=== PATIENT | female | born 1945 | race African-American/Black ===

== ENCOUNTER 2018-01-26 15:15 | Inpatient (IN) | payer OTHER ==
[2018-01-26] MEDS ORDERED: ALBUTEROL 2.5 MG/3 ML NEB SOL ONE (16:07)
[2018-01-26 16:18] LABS: Protime INR 2.94
[2018-01-26 16:34] LABS: Absolute Lymphocytes (CBC) 1.5 K/uL (0.7-4.9); Absolute Monocytes 0.6 K/uL (0.1-1.3); Absolute Neutrophil 3.9 K/uL (1.8-8.0); Basophils % 0.5 % (0-1.3); Eosinophils % 2.2 % (0-4.4); Hematocrit 37.3 % (36.0-45.0); MCH 31.9 pg (27.0-35.0); MCV 100.5 fL (80-100); MPV 10.9 fL (7.6-11.3); Monocytes % 10.3 % (3.3-12.3); RBC Red Blood Cell Count 3.71 M/uL (3.86-4.86)
[2018-01-26 16:40] LABS: ALT/SGPT 31 U/L (12-78); AST/SGOT 21 U/L (15-37); Albumin 3.1 g/dL (3.4-5.0); Alkaline Phosphatase 73 U/L (45-117); BUN Blood Urea Nitrogen 25 mg/dL (7-18); Bicarbonate 37 mmol/L (21-32); Bilirubin Direct 0.1 mg/dL (0-0.2); Bilirubin Total 0.5 mg/dL (0.2-1.0); CKMB Creatine Kinase MB < 1.0 ng/mL (0.3-3.6); Creatine Phosphokinase 78 U/L (26-192); Glucose Level 104 mg/dL (74-106); Lipase 253 U/L (73-393); Magnesium 2.2 mg/dL (1.8-2.4); Potassium 3.8 mmol/L (3.5-5.1); Protein, Total 7.8 g/dL (6.4-8.2); Sodium Level 140 mmol/L (136-145)
--- NOTE | 2018-01-26 16:40 | RAD REPORT ---
EXAM DESCRIPTION: [place] Single View01/26/2018 4:31 pm CLINICAL HISTORY: sob COMPARISON: 2007 FINDINGS: The lungs appear clear of acute infiltrate. The heart is moderately to markedly enlarged IMPRESSION: No acute abnormalities displayed
[2018-01-26] MEDS ORDERED: METOPROLOL TARTRATE 5 MG/5 ML INJ IV ONE (17:44)
[2018-01-26] MEDS ORDERED: ASPIRIN 81 MG CHEWABLE TABLET ONE (17:57)
[2018-01-26] MEDS ORDERED: NITROGLYCERIN 0.4 MG/TAB SL ONE (18:05)
[2018-01-26] MEDS ORDERED: DILTIAZEM IV ONE ×2 (18:30→19:15)
[2018-01-26] MEDS ORDERED: NA CHLORIDE 0.9% IVP ONE (18:30)
[2018-01-26] MEDS ORDERED: DILTIAZEM IVP ONE (18:30)
[2018-01-26] MEDS ORDERED: NA CHLORIDE 0.9% IV ONE ×2 (18:30→19:15)
--- NOTE | 2018-01-26 18:47 | ER ---
Nurse's Notes [facility] Name: Leticia Schmitz Age: 72 yrs Sex: Female : 1945 Arrival Date: 01/26/2018 Time: 15:19 Bed 3 Private MD: Juan Choi Diagnosis: Acute dyspnea;CHF exacerbation;Atrial Flutter Presentation: 01/26 15:23 Presenting complaint: Patient states: SOB for the past 3 weeks, last night it so bad aj1 that she is having a heard time speaking and sleeping. 15:28 Acuity: ARLENE 2 aj1 15:38 Transition of care: patient was not received from another setting of care. Onset of aj1 symptoms was January 2018. Risk Assessment: Do you want to hurt yourself or someone else? Patient reports no desire to harm self or others. Initial Sepsis Screen: Does the patient meet any 2 criteria? RR > 20 per min. HR > 90 bpm. Does the patient have a suspected source of infection? No. Patient's initial sepsis screen is negative. Care prior to arrival: None. 15:38 Method Of Arrival: Wheelchair aj Triage Assessment: 15:41 General: Appears distressed, uncomfortable, Behavior is appropriate for age, anxious. aj1 Respiratory: Reports shortness of breath Onset: The symptoms/episode began/occurred 3 weeks ago, the patient has severe shortness of breath. Historical: - Allergies: 15:41 Codeine; aj1 - Home Meds: 15:41 metformin 500 mg Oral tab 1 tab 2 times per day [Active]; potassium chloride 20 mEq aj1 Oral TbER 1 tab once daily [Active]; sertraline 25 mg oral tab 1 tab once daily [Active]; furosemide 40 mg Oral tab 1 tab 2 times per day [Active]; warfarin 10 mg Oral tab 1 tab once daily [Active]; pantoprazole 40 mg oral TbEC 1 tab once daily [Active]; simvastatin 20 mg Oral tab 1 tab once daily [Active]; isosorbide mononitrate 30 mg Oral Tb24 1 tab once daily [Active]; Uloric 80 mg oral tab 1 tab once daily [Active]; atenolol 50 mg Oral tab 1 tab once daily [Active]; - PMHx: 15:41 Atrial Fib; COPD; Asthma; Arthritis; Diabetes - IDDM; CHF; Hyperlipidemia; Hypertension;aj1 - Immunization history:: Adult Immunizations up to date. - Social history:: Smoking status: Patient/guardian denies using tobacco. - Ebola Screening: : Patient negative for fever greater than or equal to 101.5 degrees Fahrenheit, and additional compatible Ebola Virus Disease symptoms. - Family history:: not pertinent. - Hospitalizations: : No recent hospitalization is reported. Screenin:09 Abuse screen: Denies threats or abuse. Denies injuries from another. Nutritional ed1 screening: No deficits noted. Tuberculosis screening: No symptoms or risk factors identified. Fall Risk No fall in past 12 months (0 pts). No secondary diagnosis (0 pts). IV access (20 points). Ambulatory Aid- None/Bed Rest/Nurse Assist (0 pts). Gait- Weak (10 pts.). Mental Status- Oriented to own ability (0 pts). Total Healy Fall Scale indicates Low Risk Score (25-44 pts). Fall prevention measures have been instituted. Side Rails Up X 2 Frequent Obs/Assesments occuring As available Patient and Family Educated on Fall Prevention Program and strategies. Assessment: 16:09 General: Appears uncomfortable, Behavior is calm, cooperative. Pain: Complains of pain ed1 in chest and abdomen Pain does not radiate. Pain currently is 8 out of 10 on a pain scale. Quality of pain is described as aching, Pain began 3 weeks ago Is continuous. Neuro: Level of Consciousness is awake, alert, obeys commands, Oriented to person, place, time, situation. Cardiovascular: Heart tones S1 S2 present Rhythm is sinus tachycardia. Respiratory: Reports shortness of breath Airway is patent Respiratory effort is even, unlabored, Respiratory pattern is regular, symmetrical, Breath sounds with wheezes bilaterally. GI: Abdomen is obese, Bowel sounds present X 4 quads. : No signs and/or symptoms were reported regarding the genitourinary system. EENT: No signs and/or symptoms were reported regarding the EENT system. Derm: Skin is pink, warm \T\ dry. Musculoskeletal: Circulation, motion, and sensation intact. Swelling present in right foot, left foot, right leg and left leg. 16:15 General: the previous assessment is accurate, call light remains within reach. . ss 17:58 Reassessment: Patient appears in no apparent distress at this time. No changes from ed1 previously documented assessment. Patient and/or family updated on plan of care and expected duration. Pain level reassessed. Patient is alert, oriented x 3, equal unlabored respirations, skin warm/dry/pink. Patient states symptoms have not improved. 19:11 Reassessment: Patient appears in no apparent distress at this time. Patient and/or mg2 family updated on plan of care and expected duration. Pain level reassessed. patient is for admission. still awaiitng for bed. 20:45 Reassessment: Patient appears in no apparent distress at this time. Patient and/or mg2 family updated on plan of care and expected duration. Pain level reassessed. Patient is alert, oriented x 3, equal unlabored respirations, skin warm/dry/pink. Vital Signs: 15:27 BP 144 / 104; Pulse 135; Resp 32; Temp 98.1; Pulse Ox 85% on R/A; aj1 16:09 BP 149 / 106; Pulse 136; Resp 19; Pulse Ox 100% on 3 lpm NC; Pain 8/10; ed1 16:54 BP 157 / 119; Pulse 136; Resp 22; Pulse Ox 98% on 4 lpm NC; mt 17:58 BP 139 / 114; Pulse 134; Resp 15; Pulse Ox 100% on 3 lpm NC; Pain 6/10; ed1 17:59 BP 132 / 103; Pulse 133; ed1 18:48 BP 126 / 69; Pulse 134; Resp 24; Pulse Ox 99% on 3 lpm NC; tw2 19:10 Pulse 136; Resp 20; Pulse Ox 99% on 3 lpm NC; Pain 3/10; mg2 19:48 BP 137 / 97; Pulse 135; Resp 22; Pulse Ox 97% on 2 lpm NC; lp1 20:30 BP 139 / 99; Pulse 135; Resp 17; Pulse Ox 98% on 2 lpm NC; lp1 ED Course: 15:19 Patient arrived in ED. sb2 15:19 Juan Choi MD is Private Physician. sb2 15:28 Triage completed. aj1 15:29 Concetta Herrera LVN is Primary Nurse. ed1 15:35 Andrey Duong MD is Attending Physician. wa 15:42 Arm band placed on Patient placed in an exam room, on a stretcher, on oxygen, on aj1 cycle counter, on pulse oximetry. 16:05 EKG done, by glass technician. reviewed by Andrey Duong MD. sm3 16:07 Inserted saline lock: 22 gauge in left antecubital area, using aseptic technique. Blood ss collected. 16:09 Patient has correct armband on for positive identification. Placed in gown. Bed in low ed1 position. Call light in reach. Side rails up X2. certified addiction counselor on. Pulse ox on. NIBP on. 16:29 X-ray completed. Portable x-ray completed in exam room. Patient tolerated procedure ml well. 16:30 XRAY CXR (1 view) In Process Unspecified. EDMS 18:46 Jeanette Beaver MD is Hospitalizing Provider. wa 19:49 No provider procedures requiring assistance completed. Patient admitted, IV remains in lp1 place. 19:49 No provider procedures requiring assistance completed. Patient admitted, IV remains in bb place. Administered Medications: 16:08 Drug: Albuterol 1.25 mg Route: Inhalation; ed1 17:56 Drug: Lopressor 5 mg Route: IVP; Site: left antecubital; ph 17:59 Follow up: BP 132 / 103; Pulse 133 bpm; Response: No adverse reaction; No change in ed1 condition 17:59 Drug: Aspirin Chewable Tablet 324 mg Route: PO; ed1 20:05 Follow up: Response: No adverse reaction lp1 18:42 Drug: Cardizem 20 mg Route: IVP; Site: left antecubital; tw2 19:15 Follow up: Response: No change in condition lp1 19:09 Drug: Nitroglycerin 0.4 mg Route: Sublingual; mg2 20:05 Follow up: Response: No adverse reaction lp1 19:26 Drug: Cardizem 5 mg/hr Route: IV; Rate: calculated rate; Site: left antecubital; mg2 21:02 Follow up: IV Status: Infusion continued upon admission lp1 Outcome: 18:46 Decision to Hospitalize by Provider. wa 19:49 Condition: stable lp1 19:49 Instructed on the need for admit. 20:45 Admitted to ICU accompanied by nurse, accompanied by tech, via stretcher, room 7, with lp1 oxygen, on monitor, with chart, Report called to Ryanne Gonzalez RN 21:03 Patient left the ED. lp1 Signatures: Dispatcher [employer] Maria Del Carmen Vallejo RN RN aj1 Colleen Yates, RN RN bb Piotr, Ryanne Leon, Kaley, RN RN ss Javier, Concetta, PIPE SETTER PIPE SETTER ed1 Oralia Ayala, RN RN lp1 Raymon, Cony, RN RN Colin, Raegan, RN RN tw2 Meek, Susanne in Andrey Duong MD MD wa Billeau, Angelica cho2 Bill Earl, ADOLFO RN [facility] [place], Angelica 3
--- NOTE | 2018-01-26 18:47 | EDPHYS ---
Physician Documentation [facility] Name: Leticia Schmitz Age: 72 yrs Sex: Female : 1945 Arrival Date: 01/26/2018 Time: 15:19 Bed 3 Private MD: Juan Choi ED Physician Andrey Duong HPI: 01/26 17:44 This 72 yrs old Black Female presents to ER via Wheelchair with complaints of Breathing wa Difficulty. 17:44 The patient has shortness of breath at rest, c/o SOB x 3 weeks. worse last 2 days. wa Onset: The symptoms/episode began/occurred gradually, 3 week(s) ago. Duration: The symptoms are continuous, and are steadily getting worse. The patient's shortness of breath is aggravated by exertion, is alleviated by nothing. Associated signs and symptoms: Pertinent positives: pain all over, Pertinent negatives: non-productive cough, productive cough. Severity of symptoms: At their worst the symptoms were moderate in the emergency department the symptoms are unchanged. The patient has not experienced similar symptoms in the past. The patient has not recently seen a physician. Historical: - Allergies: 15:41 Codeine; aj1 - Home Meds: 15:41 metformin 500 mg Oral tab 1 tab 2 times per day [Active]; potassium chloride 20 mEq aj1 Oral TbER 1 tab once daily [Active]; sertraline 25 mg oral tab 1 tab once daily [Active]; furosemide 40 mg Oral tab 1 tab 2 times per day [Active]; warfarin 10 mg Oral tab 1 tab once daily [Active]; pantoprazole 40 mg oral TbEC 1 tab once daily [Active]; simvastatin 20 mg Oral tab 1 tab once daily [Active]; isosorbide mononitrate 30 mg Oral Tb24 1 tab once daily [Active]; Uloric 80 mg oral tab 1 tab once daily [Active]; atenolol 50 mg Oral tab 1 tab once daily [Active]; - PMHx: 15:41 Atrial Fib; COPD; Asthma; Arthritis; Diabetes - IDDM; CHF; Hyperlipidemia; Hypertension;aj1 - Immunization history:: Adult Immunizations up to date. - Social history:: Smoking status: Patient/guardian denies using tobacco. - Ebola Screening: : Patient negative for fever greater than or equal to 101.5 degrees Fahrenheit, and additional compatible Ebola Virus Disease symptoms. - Family history:: not pertinent. - Hospitalizations: : No recent hospitalization is reported. ROS: 17:45 Constitutional: Negative for fever, chills, and weight loss, Eyes: Negative for injury, wa pain, redness, and discharge, ENT: Negative for injury, pain, and discharge, Neck: Negative for injury, pain, and swelling, Abdomen/GI: Negative for abdominal pain, nausea, vomiting, diarrhea, and constipation, Back: Negative for injury and pain, : Negative for injury, bleeding, discharge, and swelling, Skin: Negative for injury, rash, and discoloration, Neuro: Negative for headache, weakness, numbness, tingling, and seizure, Psych: Negative for depression, anxiety, suicide ideation, homicidal ideation, and hallucinations. 17:45 Cardiovascular: Positive for edema, Negative for chest pain, palpitations, paroxysmal nocturnal dyspnea. 17:45 Respiratory: Positive for shortness of breath, at rest. Negative for cough, hemoptysis, wheezing. 17:45 All other systems are negative. Exam: 17:47 Head/Face: Normocephalic, atraumatic. Eyes: Pupils equal round and reactive to light, wa extra-ocular motions intact. Lids and lashes normal. Conjunctiva and sclera are non-icteric and not injected. Cornea within normal limits. Periorbital areas with no swelling, redness, or edema. ENT: Nares patent. No nasal discharge, no septal abnormalities noted. Tympanic membranes are normal and external auditory canals are clear. Oropharynx with no redness, swelling, or masses, exudates, or evidence of obstruction, uvula midline. Mucous membranes moist. Neck: Trachea midline, no thyromegaly or masses palpated, and no cervical lymphadenopathy. Supple, full range of motion without nuchal rigidity, or vertebral point tenderness. No Meningismus. Chest/axilla: Normal chest wall appearance and motion. Nontender with no deformity. No lesions are appreciated. Abdomen/GI: Soft, non-tender, with normal bowel sounds. No distension or tympany. No guarding or rebound. No evidence of tenderness throughout. Back: No spinal tenderness. No costovertebral tenderness. Full range of motion. Skin: Warm, dry with normal turgor. Normal color with no rashes, no lesions, and no evidence of cellulitis. Neuro: Awake and alert, GCS 15, oriented to person, place, time, and situation. Cranial nerves II-XII grossly intact. Motor strength 5/5 in all extremities. Sensory grossly intact. Cerebellar exam normal. Normal gait. Psych: Awake, alert, with orientation to person, place and time. Behavior, mood, and affect are within normal limits. 17:47 Constitutional: The patient appears alert, obese. appears slightly dyspneic at rest 17:47 Cardiovascular: Rate: tachycardic, Rhythm: regular, Heart sounds: normal, Edema: 1+ edema to level of both LE. 17:47 ECG was reviewed by the Attending Physician. 17:47 Respiratory: Respirations: shallow respirations, that is mild, Breath sounds: decreased breath sounds, that are moderate, are heard in the both lungs, Respiratory rate: nml Vital Signs: 15:27 BP 144 / 104; Pulse 135; Resp 32; Temp 98.1; Pulse Ox 85% on R/A; aj1 16:09 BP 149 / 106; Pulse 136; Resp 19; Pulse Ox 100% on 3 lpm NC; Pain 8/10; ed1 16:54 BP 157 / 119; Pulse 136; Resp 22; Pulse Ox 98% on 4 lpm NC; mt 17:58 BP 139 / 114; Pulse 134; Resp 15; Pulse Ox 100% on 3 lpm NC; Pain 6/10; ed1 17:59 BP 132 / 103; Pulse 133; ed1 18:48 BP 126 / 69; Pulse 134; Resp 24; Pulse Ox 99% on 3 lpm NC; tw2 19:10 Pulse 136; Resp 20; Pulse Ox 99% on 3 lpm NC; Pain 3/10; mg2 19:48 BP 137 / 97; Pulse 135; Resp 22; Pulse Ox 97% on 2 lpm NC; lp1 20:30 BP 139 / 99; Pulse 135; Resp 17; Pulse Ox 98% on 2 lpm NC; lp1 MDM: 15:36 Patient medically screened. wa 17:49 Differential diagnosis: Anemia asthma, Bronchitis CHF exacerbation, Chronic Obstructive wa Pulmonary Disease Myocardial Infarction pneumonia, pulmonary edema, Pulmonary Embolism reactive airway disease, Sepsis Unstable Angina. 17:49 Data reviewed: vital signs, nurses notes. wa 17:50 Test interpretation: by ED physician or midlevel provider: EKG: HR 135. Aflutter. wa inferior and lateral EKG changes consistent with old infarct. 18:44 Test interpretation: by ED physician or midlevel provider: BNP 1594. Response to nm treatment: the patient's symptoms have mildly improved after treatment. Physician consultation: Jeanette Beaver MD. Admission orders: after a detailed discussion of the patient's condition and case, the admit orders are written by me. ED course: HR did not respond to lopressor. will give a dose of cardizem and begin drip for A flutter.. 01/26 15:51 Order name: Blood Culture Adult (2) 01/26 15:51 Order name: BMP 01/26 15:51 Order name: CBC with Diff 01/26 15:51 Order name: Ckmb 01/26 15:51 Order name: CPK 01/26 15:51 Order name: Hepatic Function; Complete Time: 17:30 nm 01/26 15:51 Order name: Lipase; Complete Time: 17:30 nm 01/26 15:51 Order name: Magnesium; Complete Time: 17:31 nm 01/26 15:51 Order name: PT-INR; Complete Time: 17:30 nm 01/26 15:51 Order name: Troponin (emerg Dept Use Only); Complete Time: 17:31 nm 01/26 15:51 Order name: Blood Culture [facility] 01/26 15:51 Order name: Basic Metabolic Panel; Complete Time: 17:30 [facility] 01/26 15:51 Order name: CBC with Automated Diff; Complete Time: 17:30 [facility] 01/26 15:51 Order name: CKMB Creatine Kinase MB; Complete Time: 17:31 [facility] 01/26 15:51 Order name: XRAY CXR (1 view); Complete Time: 17:30 nm 01/26 15:51 Order name: EKG; Complete Time: 15:51 01/26 15:51 Order name: Cardiac monitoring; Complete Time: 15:52 nm 01/26 15:51 Order name: EKG - Nurse/Tech; Complete Time: 15:52 nm 01/26 15:51 Order name: IV Saline Lock; Complete Time: 16:03 01/26 15:51 Order name: Labs collected and sent; Complete Time: 16:01/26 15:51 Order name: Creatine Phosphokinase; Complete Time: 17:31 [facility] 01/26 17:31 Order name: BNP; Complete Time: 18:43 nm 01/26 19:41 Order name: Urine Dipstick--Ancillary (enter results) 01/26 20:07 Order name: Urine Dipstick-Ancillary [facility] 01/26 15:51 Order name: O2 Per Protocol; Complete Time: 15:52 nm 01/26 15:51 Order name: O2 Sat Monitoring; Complete Time: 15:53 nm 01/26 15:51 Order name: Urine Dipstick-Ancillary (obtain specimen); Complete Time: 20:04 nm 01/26 18:35 Order name: Straight Cath - Urine; Complete Time: 19:09 tw2 Administered Medications: 16:08 Drug: Albuterol 1.25 mg Route: Inhalation; ed1 17:56 Drug: Lopressor 5 mg Route: IVP; Site: left antecubital; ph 17:59 Follow up: BP 132 / 103; Pulse 133 bpm; Response: No adverse reaction; No change in ed1 condition 17:59 Drug: Aspirin Chewable Tablet 324 mg Route: PO; ed1 20:05 Follow up: Response: No adverse reaction lp1 18:42 Drug: Cardizem 20 mg Route: IVP; Site: left antecubital; tw2 19:15 Follow up: Response: No change in condition lp1 19:09 Drug: Nitroglycerin 0.4 mg Route: Sublingual; mg2 20:05 Follow up: Response: No adverse reaction lp1 19:26 Drug: Cardizem 5 mg/hr Route: IV; Rate: calculated rate; Site: left antecubital; mg2 21:02 Follow up: IV Status: Infusion continued upon admission lp1 Disposition: 01/26/18 18:46 Hospitalization ordered by Jeanette Beaver for Inpatient Admission. Preliminary diagnosis are Acute dyspnea, CHF exacerbation, Atrial Flutter. - Bed requested for Intensive Care Unit. - Status is Inpatient Admission. lp1 - Condition is Stable. - Problem is new. - Symptoms have improved. UTI on Admission? No Signatures: Dispatcher [employer] EDMS Maria Del Carmen Askew RN RN aj1 Leilani Farooq RN RN dw Concetta Herrera, MAPLE SYRUP MAKER MAPLE SYRUP MAKER ed1 Oralia Ayala RN RN lp1 Cony Ennis RN RN Ko Johnson, BOAT OFFICER BOAT OFFICER pm1 Raegan Shaw RN RN tw2 Andrey Duong MD MD wa Botello, Elizabeth eb Gardose, Michele, RN RN mg2 Corrections: (The following items were deleted from the chart) 18:52 18:46 Hospitalization Ordered by Jeanette Beaver MD for Inpatient Admission. Preliminary eb diagnosis is Acute dyspnea; CHF exacerbation; Atrial Flutter. Bed requested for Telemetry/MedSurg (Inpatient). Status is Inpatient Admission. Condition is Stable. Problem is new. Symptoms have improved. UTI on Admission? No. wa 19:17 18:52 01/26/2018 18:46 Hospitalization Ordered by Jeanette Beaver MD for Inpatient pm1 Admission. Preliminary diagnosis is Acute dyspnea; CHF exacerbation; Atrial Flutter. Bed requested for Telemetry/MedSurg (Inpatient). Status is Inpatient Admission. Condition is Stable. Problem is new. Symptoms have improved. UTI on Admission? No. eb 19:24 19:17 01/26/2018 18:46 Hospitalization Ordered by Jeanette Beaver MD for Inpatient dw Admission. Preliminary diagnosis is Acute dyspnea; CHF exacerbation; Atrial Flutter. Bed requested for Telemetry/MedSurg (Inpatient). Status is Inpatient Admission. Condition is Stable. Problem is new. Symptoms have improved. UTI on Admission? No. pm1 19:26 19:24 01/26/2018 18:46 Hospitalization Ordered by Jeanette Beaver MD for Inpatient dw Admission. Preliminary diagnosis is Acute dyspnea; CHF exacerbation; Atrial Flutter. Bed requested for Intensive Care Unit. Status is Inpatient Admission. Condition is Stable. Problem is new. Symptoms have improved. UTI on Admission? No. dw 21:03 19:26 01/26/2018 18:46 Hospitalization Ordered by Jeanette Beaver MD for Inpatient lp1 Admission. Preliminary diagnosis is Acute dyspnea; CHF exacerbation; Atrial Flutter. Bed requested for Intensive Care Unit. Status is Inpatient Admission. Condition is Stable. Problem is new. Symptoms have improved. UTI on Admission? No. dw
[2018-01-26] MEDS ORDERED: ONDANSETRON 4 MG/2 ML VIAL IV PRN (19:18)
[2018-01-26] MEDS ORDERED: ACETAMINOPHEN 650MG/RECT SUPP RECT PRN (19:18)
[2018-01-26] MEDS ORDERED: METOPROLOL TARTRATE 5 MG/5 ML INJ IV PRN (19:21)
[2018-01-26] MEDS ORDERED: NA CHLORIDE 0.9% 1,000 ML IV SCH ×2 (20:00→23:00)
[2018-01-26 20:06] LABS: Urine Blood TRACE (NEG); Urine Glucose NEGATIVE (NEG); Urine Protein 2+ (NEG); Urine Specific Gravity 1.015 (1.005-1.030)
[2018-01-26] MEDS ORDERED: METOPROLOL TAR 50 MG TAB PO ONE (23:24)
[2018-01-27] MEDS ORDERED: METOPROLOL TARTRATE 5 MG/5 ML INJ IV SCH (02:00)
[2018-01-27] MEDS: METOPROLOL TARTRATE 5 MG/5 ML INJ IV SCH ×4 (02:25→20:21)
[2018-01-27 05:19] LABS: Absolute Lymphocytes (CBC) 1.4 K/uL (0.7-4.9); Absolute Monocytes 0.6 K/uL (0.1-1.3); Absolute Neutrophil 3.5 K/uL (1.8-8.0); Basophils % 0.5 % (0-1.3); Eosinophils % 2.3 % (0-4.4); Hematocrit 36.6 % (36.0-45.0); Lymphocytes % 24.7 % (15.3-44.8); MCV 102.1 fL (80-100); MPV 10.3 fL (7.6-11.3); Monocytes % 11.1 % (3.3-12.3); RBC Red Blood Cell Count 3.59 M/uL (3.86-4.86)
--- NOTE | 2018-01-27 05:28 | P.HP ---
Certification for Inpatient Patient admitted to: Inpatient With expected LOS: >2 Midnights Patient will require the following post-hospital care: None Practitioner: I am a practitioner with admitting privileges, knowledge of patient current condition, hospital course, and medical plan of care. Services: Services provided to patient in accordance with Admission requirements found in Title 42 Section 412.3 of the Code of Federal Regulations Patient History Date of Service: 01/26/18 Reason for admission: AFib with RVR History of Present Illness: Patient is a 72-year-old female who presents to the hospital with palpitations along with shortness of breath. Patient has had a history of atrial fibrillation in follows up with her technical applications specialist in [place]. She sees Dr. Goss. She has been on atenolol and Coumadin. Her INR is therapeutic. She has been having some shortness of breath and her workup in the ER revealed atrial fibrillation with rapid ventricular response. In the emergency room patient was started on Cardizem but her heart rate has not been improving. We went ahead and stop this and are going to get an echocardiogram and continue with beta-kala therapy. We will also get Cardiology consultation further recommendations. The patient is feeling better. She is hemodynamically stable although or heart rate continues to stay in the 120s. Will check her thyroid studies in the morning and wait for other diagnostic testings. Allergies codeine Adverse Reaction (Verified 01/26/18 21:53) Itching/Hives/Rash Home Medications: Allopurinol 300 mg PO DAILY 01/26/18 Atenolol 50 mg PO DAILY 01/26/18 Febuxostat [Uloric] 80 mg PO DAILY 01/26/18 Furosemide 40 mg PO BID 01/26/18 Isosorbide Mononitrate [Isosorbide Mononitrate ER] 30 mg PO BID 01/26/18 Metformin HCl [Glucophage*] 500 mg PO BID 01/26/18 Pantoprazole Sodium 40 mg PO DAILY 01/26/18 Potassium Chloride 1 tab PO DAILY 01/26/18 Sertraline HCl 25 mg PO DAILY 01/26/18 Simvastatin 20 mg PO DAILY 01/26/18 Warfarin Sodium 10 mg PO DAILY 01/26/18 - Past Medical/Surgical History Has patient received pneumonia vaccine in the past: Yes Diabetic: Yes -: CHF -: HTN -: Afib -: COPD -: NIDDM -: Arthritis -: Hyperlipidemia -: Asthma -: Hysterectomy -: Cholecystectomy -: Hernia repair 5 surgeries -: dental work - Family History Father Medical History: Cancer Notes: stomach Mother Medical History: Cancer Notes: stomach - Social History Smoking Status: Never smoker Alcohol use: No CD- Drugs: No Caffeine use: No Place of Residence: Home Review of Systems 10-point ROS is otherwise unremarkable Physical Examination - Vital Signs Temperature: 97 F Blood Pressure: 139/103 Pulse: 127 Respirations: 20 Pulse Ox (%): 100 - Physical Exam General: Alert, In no apparent distress, Oriented x3 HEENT: Atraumatic, PERRLA, Mucous membr. moist/pink, EOMI, Sclerae nonicteric Neck: Supple, 2+ carotid pulse no bruit, No LAD, Without JVD or thyroid abnormality Respiratory: Clear to auscultation bilaterally, Normal air movement Cardiovascular: Irregular heart rate/rhythm, Systolic murmur Gastrointestinal: Normal bowel sounds, Soft and benign, Non-distended, No tenderness, No rebound, No guarding Musculoskeletal: No clubbing, No swelling, No tenderness Integumentary: No rashes Neurological: Normal gait, Normal speech, Normal strength at 5/5 x4 extr, Normal tone, Sensation intact, Cranial nerves 3-12 intact, Normal affect Lymphatics: No axilla or inguinal lymphadenopathy - Studies Laboratory Data (last 24 hrs) 01/26/18 16:00: PT 35.1 H, INR 2.94 01/26/18 16:00: WBC 6.2, Hgb 11.8 L, Hct 37.3, Plt Count 133 L 01/26/18 16:00: Sodium 140, Potassium 3.8, BUN 25 H, Creatinine 1.10, Glucose 104, Magnesium 2.2, Total Bilirubin 0.5, AST 21, ALT 31, Alkaline Phosphatase 73 , Lipase 253 Assessment & Plan - Problems (Diagnosis) (1) Atrial fibrillation with RVR Current Visit: Yes Status: Acute (2) History of hypertension Current Visit: Yes Status: Acute (3) History of type 2 diabetes mellitus Current Visit: Yes Status: Acute (4) CHF (congestive heart failure) Current Visit: Yes Status: Acute (5) COPD (chronic obstructive pulmonary disease) Current Visit: Yes Status: Acute - Plan Plan: 1. Resume beta-kala therapy 2. Resume anti coagulation 3. Echocardiogram 4. Resume CPAP support 5. Cardiology consultation 6. Strict blood pressure and blood sugar control 7. Monitor labs closely 8. GI and DVT prophylaxis Discharge Plan: Home Plan to discharge in: 24 Hours - Advance Directives Does patient have a Living Will: No Does patient have a Durable POA for Healthcare: No - Code Status/Comfort Care Code Status Assessed: Yes Code Status: Full Code Critical Care: No Time Spent Managing PTS Care (In Minutes): 50
[2018-01-27 05:57] LABS: Albumin 2.9 g/dL (3.4-5.0); Bilirubin Total 0.6 mg/dL (0.2-1.0); Magnesium 2.2 mg/dL (1.8-2.4); Phosphorus 3.1 mg/dL (2.5-4.9); Potassium 3.7 mmol/L (3.5-5.1); Protein, Total 7.4 g/dL (6.4-8.2)
--- NOTE | 2018-01-27 06:38 | EKG ---
Test Date: 2018-01-26 Test Time: 15:36:03 Child Daycare Worker: SOLO MEASUREMENT RESULTS: Intervals: Rate: 135 SC: QRSD: 62 QT: 376 QTc: 564 [place]: P: SC: QRS: -29 T: 264 INTERPRETIVE STATEMENTS: Atrial flutter with 2:1 AV conduction Inferior infarct, age undetermined Anterolateral infarct, age undetermined Abnormal ECG No previous ECG available for comparison Electronically Signed On 01-27-18 06:37:23 CDT by Laurent Vincent
[2018-01-27] MEDS ORDERED: FUROSEMIDE 40 MG TABLET PO SCH (09:00)
[2018-01-27] MEDS: SERTRALINE HCL 50 MG TAB PO SCH (09:03)
[2018-01-27] MEDS: PANTOPRAZOLE 40MG TABLET PO SCH (09:04)
[2018-01-27] MEDS: POTASSIUM CL SA 10 MEQ TAB PO SCH (09:04)
[2018-01-27] MEDS: ALLOPURINOL 300 MG TAB PO SCH (09:06)
[2018-01-27] MEDS: ACETAMINOPHEN 500 MG TAB PO PRN (09:32)
--- NOTE | 2018-01-27 11:56 | P.PN ---
Subjective Date of Service: 01/27/18 Chief Complaint: AFib with RVR Subjective: No new changes, No C/O voiced, Improving, Doing well Review of Systems General: As per HPI Physical Examination - Vital Signs Temperature: 97 F Blood Pressure: 117/84 Pulse: 132 Respirations: 21 Pulse Ox (%): 95 - Physical Exam General: Alert, In no apparent distress, Obese HEENT: Atraumatic, PERRLA, EOMI Neck: Supple, JVD not distended Respiratory: Normal air movement, Crackles/rales Cardiovascular: Normal S1 S2, Abnormal pulses, Irregular heart rate/rhythm Gastrointestinal: Normal bowel sounds, Soft and benign, Non-distended, No tenderness Musculoskeletal: No tenderness Integumentary: No rashes Neurological: Normal speech, Normal tone, Normal affect Lymphatics: No axilla or inguinal lymphadenopathy - Studies Laboratory Data (last 24 hrs) 01/26/18 16:00: PT 35.1 H, INR 2.94 01/26/18 16:00: WBC 6.2, Hgb 11.8 L, Hct 37.3, Plt Count 133 L 01/26/18 16:00: Sodium 140, Potassium 3.8, BUN 25 H, Creatinine 1.10, Glucose 104, Magnesium 2.2, Total Bilirubin 0.5, AST 21, ALT 31, Alkaline Phosphatase 73 , Lipase 253 Medications List Reviewed: Yes Assessment & Plan - Problems (Diagnosis) (1) Atrial fibrillation with RVR Onset Date: 01/27/18 Current Visit: Yes Status: Acute Plan: afib witn RVR, Currently HR is 120-130 -Cardiology consulted. Appreciated Reccs -Increase Atelonol to 100mg BID -Anticoagulation with coumadin -EF is < 30% on the ECHO -If no change. Might Consider Cardioversion (2) CHF (congestive heart failure) Onset Date: 01/27/18 Current Visit: Yes Status: Chronic Qualifiers: Heart failure type: systolic Heart failure chronicity: acute on chronic Qualified Code(s): I50.23 - Acute on chronic systolic (congestive) heart failure (3) COPD (chronic obstructive pulmonary disease) Onset Date: 01/27/18 Current Visit: Yes Status: Chronic Qualifiers: COPD type: unspecified COPD Qualified Code(s): J44.9 - Chronic obstructive pulmonary disease, unspecified (4) History of hypertension Onset Date: 01/27/18 Current Visit: Yes Status: Chronic (5) History of type 2 diabetes mellitus Onset Date: 01/27/18 Current Visit: Yes Status: Chronic (6) ROBERT (obstructive sleep apnea) Current Visit: Yes Status: Chronic (7) Obesity Current Visit: Yes Status: Chronic Qualifiers: Obesity type: due to excess calories Obesity classification: adult class 3 (BMI >= 40) Serious obesity comorbidity presence: with serious comorbidity Body mass index: BMI 60.0-69.9 Qualified Code(s): E66.01 - Morbid (severe) obesity due to excess calories; Z68.44 - Body mass index (BMI) 60.0-69.9, adult Discharge Plan: Home Plan to discharge in: 48 Hours - Code Status/Comfort Care Code Status Assessed: Yes Critical Care: Yes
--- NOTE | 2018-01-27 12:05 | ECHO ---
HEIGHT: 5 ft 2 in WEIGHT: 351 lb 2 oz DATE OF STUDY: 01/27/[address]: Reid Cronin MD 2-DIMENSIONAL: YES M.MODE: YES DOPPLER: YES COLOR FLOW: YES TDS: YES PORTABLE: NO DEFINITY: NO BUBBLE STUDY: NO DIAGNOSIS: CONGESTIVE HEART FAILURE CARDIAC HISTORY: CATHERIZATION: NO SURGERY: NO PROSTHETIC VALVE: NO PACEMAKER: NO MEASUREMENTS (cm) DIASTOLIC (NORMALS) SYSTOLIC (NORMALS) IVSd 1.2 (0.6-1.2) LA Diam 4.1 (1.9-4.0) LVEF 33% LVIDd 4.8 (3.5-5.7) LVIDs 4.0 (2.0-3.5) %FS 16% LVPWd 1.3 (0.6-1.2) Ao Diam 2.9 (2.0-3.7) 2 DIMENSIONAL ASSESSMENT: RIGHT ATRIUM: NORMAL LEFT ATRIUM: DILATED RIGHT VENTRICLE: NORMAL LEFT VENTRICLE: NORMAL SIZE TRICUSPID VALVE: NORMAL MITRAL VALVE: MITRAL ANNULAR CALCIFICATION PULMONIC VALVE: NORMAL AORTIC VALVE: SCLEROSIS PERICARDIAL EFFUSION: NONE AORTIC ROOT: NORMAL LEFT VENTRICULAR WALL MOTION: SEVERE GLOBAL HYPOKINESIS. DOPPLER/COLOR FLOW: MILD MITRAL AND TRICUSPID REGURGITATION, NORMAL RIGHT VENTRICULAR SYSTOLIC PRESSURE. COMMENTS: SEVERE GLOBAL HYPOKINESIS. EJECTION FRACTION 30%. LEFT ATRIAL ENLARGEMENT. LEFT VENTRICULAR HYPERTROPHY. MITRAL ANNULAR CALCIFICATION. AORTIC SCLEROSIS. TECHNOLOGIST: CHELSI ALFONSO
[2018-01-27] MEDS ORDERED: GLUCAGON 1 MG/VIAL IM PRN (13:48)
[2018-01-27] MEDS ORDERED: D50W 25 GM/50 ML SYRINGE IV PRN (13:48)
[2018-01-27] MEDS ORDERED: LORazepam 2 MG/ML VIAL IV ONE (15:26)
[2018-01-27] MEDS: FUROSEMIDE 40 MG/4 ML VIAL IV SCH (16:27)
[2018-01-27] MEDS: ATENOLOL 50 MG TAB PO SCH (16:28)
[2018-01-27] MEDS: INSULIN -REGULAR HUMAN 50 UNIT/0.5 ML ML SQ SCH ×2 (16:28→21:00)
[2018-01-27] MEDS: WARFARIN SODIUM 5 MG TAB PO SCH (16:29)
[2018-01-27] MEDS: ATORVASTATIN 10 MG TAB PO SCH (21:29)
[2018-01-27] MEDS: ALPRAZOLAM 0.25 MG TABLET PO PRN (21:35)
[2018-01-28] MEDS: METOPROLOL TARTRATE 5 MG/5 ML INJ IV SCH ×3 (02:37→14:00)
--- NOTE | 2018-01-28 02:49 | CON ---
Date of Consultation: 01/27/[address] Beaver on 01/26/2018. I saw the patient on 01/27/2018. Reason For Consultation: Atrial flutter. History Of Present Illness: Ms. Schmitz is a 72-year-old woman with history of atrial fibrillation, C OPD, diabetes, hypertension, congestive heart failure and dyslipidemia, came in with rapid atrial flu tter and fibrillation, short of breath. By the time I saw her, she was already feeling better with a heart rate that was better controlled. She was receiving IV beta-blockers. I gave her a dose of di goxin. Initially, she was given IV Cardizem which was discontinued. Her atenolol dose at home is 50 mg daily, that was doubled to 100 mg. Still complains of slight shortness of breath. No chest pain . No syncope. No fevers or chills. I believe Ms. Schmitz sees Dr. Santo Goss in [place] for he r cardiac care and has seen him recently. Her atrial fibrillation is chronic. She is on Coumadin. Allergies: . Review of Systems: Negative. Social History: Negative. Family History: Noncontributory. Past Medical History: As stated above. Medications: At home include metformin, Protonix, Imdur, Zocor, Lasix, potassium, Coumadin, and aten olol. Physical Examination: General: Ms. Schmitz is an obese woman in no acute distress. Vital signs: Stable. She was in atrial fibrillation at a rate of 100. HEENT exam: Negative. Neck: Supple without any bruit, lymphadenopathy, JVD, or thyromegaly. Chest: Revealed rales at both bases. Cardiac exam: Revealed atrial fibrillation. Abdomen: Obese. Extremities: Revealed 1 to 2+ edema. Diagnostic Data: Hemoglobin 11.0. INR is 2.94. BNP is 1574. Chest x-ray was negative. EKG showed AFib. Impression And Plan: 1.Chronic atrial fibrillation with rapid ventricular response. We would increase atenolol dose to 1 00 for now. Continue IV Lopressor on as needed basis for heart rate greater than 110. Lovenox is no t necessary at that point with her INR of 2.94, continue her Coumadin. 2.Acute on chronic systolic congestive heart failure. I think we will need to give her IV Lasix ins tead of p.o. Lasix. She is edematous, has some rales at the bases despite a normal chest x-ray. Is still short of breath and I think that may help her. 3.Acute exacerbation of chronic COPD. 4.Diabetes. 5.Hypertension, well controlled. 6.Dyslipidemia, well controlled. 7.Gastroesophageal reflux disease. 8.Possible history of coronary artery disease, details unknown. I will continue to follow the patie nt with Dr. Beaver. YAMILKA/CECIL Voice ID: [id number] Report ID: [id number]
[2018-01-28] MEDS ORDERED: ATENOLOL 50 MG TAB PO SCH (06:00)
[2018-01-28 06:55] LABS: Magnesium 2.5 mg/dL (1.8-2.4); Phosphorus 3.7 mg/dL (2.5-4.9); Potassium 4.3 mmol/L (3.5-5.1)
[2018-01-28] MEDS: INSULIN -REGULAR HUMAN 50 UNIT/0.5 ML ML SQ SCH ×4 (07:30→20:12)
[2018-01-28] MEDS: FUROSEMIDE 40 MG/4 ML VIAL IV SCH ×2 (08:29→17:37)
[2018-01-28] MEDS: POTASSIUM CL SA 10 MEQ TAB PO SCH (08:30)
[2018-01-28] MEDS: SERTRALINE HCL 50 MG TAB PO SCH (08:30)
[2018-01-28] MEDS: ALLOPURINOL 300 MG TAB PO SCH (08:37)
[2018-01-28] MEDS: PANTOPRAZOLE 40MG TABLET PO SCH (08:37)
[2018-01-28] MEDS: ATENOLOL 50 MG TAB PO SCH ×2 (08:37→20:12)
--- NOTE | 2018-01-28 11:11 | EKG ---
Test Date: 2018-01-28 Test Time: 05:45:38 Industry Segment Specialist: EBRT MEASUREMENT RESULTS: Intervals: Rate: 131 NH: QRSD: 76 QT: 272 QTc: 401 [place]: P: 243 NH: QRS: -18 T: 48 INTERPRETIVE STATEMENTS: Atrial flutter with 2:[address] abnormality, possible inferior subendocardial injury Abnormal ECG Compared to ECG 01/26/2018 15:36:03 ST (T wave) deviation now present Myocardial infarct finding no longer present Electronically Signed On 01-28-18 11:11:07 CDT by Laurent Vincent
[2018-01-28] MEDS ORDERED: DIGOXIN 0.125 MG TABLET PO ONE (14:24)
--- NOTE | 2018-01-28 14:47 | P.PN ---
Subjective Date of Service: 01/28/18 Chief Complaint: AFib with RVR Pt seen and examined at bedside. Chart reviewed. Case DW with Cardiology. Pt is still having HR is 120-130 which seems to be her baseline per conversation with her Religion Teacher Dr Goss. Currently no complains to offer. Review of Systems General: As per HPI Physical Examination - Vital Signs Temperature: 98.2 F Blood Pressure: 111/88 Pulse: 127 Respirations: 27 Pulse Ox (%): 95 - Physical Exam General: Alert, In no apparent distress, Oriented x3, Obese HEENT: Atraumatic, PERRLA, EOMI Neck: Supple, JVD not distended Respiratory: Normal air movement, Crackles/rales Cardiovascular: Normal S1 S2, Abnormal pulses, Irregular heart rate/rhythm Gastrointestinal: Normal bowel sounds, No tenderness Musculoskeletal: No tenderness Integumentary: No rashes Neurological: Normal speech, Normal tone, Normal affect Lymphatics: No axilla or inguinal lymphadenopathy - Studies Medications List Reviewed: Yes Assessment & Plan - Problems (Diagnosis) (1) Atrial fibrillation with RVR Onset Date: 01/27/18 Current Visit: Yes Status: Acute Plan: afib witn RVR, Currently HR is 120-130 -Cardiology consulted. Appreciated Reccs -Increase Atelonol to 100mg BID -Started on Digoxin 0.125mg x1 and then 0.25 daily -Anticoagulation with coumadin -EF is < 30% on the ECHO -Per Cardiology Dr Goss at baseline (HR 120-130) (2) CHF (congestive heart failure) Onset Date: 01/27/18 Current Visit: Yes Status: Chronic Plan: EF of 30% on recent ECHO -IV lasix 40mg BID for now -Started on Digoxin Qualifiers: Heart failure type: systolic Heart failure chronicity: acute on chronic Qualified Code(s): I50.23 - Acute on chronic systolic (congestive) heart failure (3) COPD (chronic obstructive pulmonary disease) Onset Date: 01/27/18 Current Visit: Yes Status: Chronic Qualifiers: COPD type: unspecified COPD Qualified Code(s): J44.9 - Chronic obstructive pulmonary disease, unspecified (4) History of hypertension Onset Date: 01/27/18 Current Visit: Yes Status: Chronic (5) History of type 2 diabetes mellitus Onset Date: 01/27/18 Current Visit: Yes Status: Chronic (6) ROBERT (obstructive sleep apnea) Current Visit: Yes Status: Chronic (7) Obesity Current Visit: Yes Status: Chronic Qualifiers: Obesity type: due to excess calories Obesity classification: adult class 3 (BMI >= 40) Serious obesity comorbidity presence: with serious comorbidity Body mass index: BMI 60.0-69.9 Qualified Code(s): E66.01 - Morbid (severe) obesity due to excess calories; Z68.44 - Body mass index (BMI) 60.0-69.9, adult
[2018-01-28] MEDS: WARFARIN SODIUM 5 MG TAB PO SCH (17:35)
[2018-01-28] MEDS: ATORVASTATIN 10 MG TAB PO SCH (20:12)
[2018-01-29] MEDS: ACETAMINOPHEN 500 MG TAB PO PRN (04:52)
[2018-01-29] MEDS: INSULIN -REGULAR HUMAN 50 UNIT/0.5 ML ML SQ SCH ×4 (07:30→20:48)
[2018-01-29] MEDS: POTASSIUM CL SA 10 MEQ TAB PO SCH (09:05)
[2018-01-29] MEDS: ALLOPURINOL 300 MG TAB PO SCH (09:05)
[2018-01-29] MEDS: SERTRALINE HCL 50 MG TAB PO SCH (09:06)
[2018-01-29] MEDS: PANTOPRAZOLE 40MG TABLET PO SCH (09:06)
[2018-01-29] MEDS: ATENOLOL 50 MG TAB PO SCH ×2 (09:06→20:47)
[2018-01-29] MEDS: DIGOXIN 0.25 MG TABLET PO SCH (09:06)
[2018-01-29] MEDS: FUROSEMIDE 40 MG/4 ML VIAL IV SCH ×2 (09:07→16:43)
--- NOTE | 2018-01-29 10:57 | P.CNS ---
Date of Consult: 01/29/18 Reason for Consult: Respiratory failure Chief Complaint: AFib with RVR History of Present Illness: Patient is 72 years of age a poor his admitted with chronic shortness of breath and atrial fibrillation she has become progressively debilitated not confined to a wheelchair. She does have home oxygen at home has a primary care doctor and a lmft patient compliant with her medication he she does have a history of obstructive sleep apnea noncompliant with her CPAP machine complains of loud snoring excessive daytime somnolence patient was found to be hypoxic hypercapnic respiratory failure with peripheral edema she is a little confused Allergies codeine Adverse Reaction (Verified 01/26/18 21:53) Itching/Hives/Rash Home Medications: Allopurinol 300 mg PO DAILY 01/26/18 Atenolol 50 mg PO DAILY 01/26/18 Febuxostat [Uloric] 80 mg PO DAILY 01/26/18 Furosemide 40 mg PO BID 01/26/18 Isosorbide Mononitrate [Isosorbide Mononitrate ER] 30 mg PO BID 01/26/18 Metformin HCl [Glucophage*] 500 mg PO BID 01/26/18 Pantoprazole Sodium 40 mg PO DAILY 01/26/18 Potassium Chloride 1 tab PO DAILY 01/26/18 Sertraline HCl 25 mg PO DAILY 01/26/18 Simvastatin 20 mg PO DAILY 01/26/18 Warfarin Sodium 10 mg PO DAILY 01/26/18 - Past Medical/Surgical History Diabetic: Yes -: CHF -: HTN -: Afib -: COPD -: NIDDM -: Arthritis -: Hyperlipidemia -: Asthma -: Hysterectomy -: Cholecystectomy -: Hernia repair 5 surgeries -: dental work - Family History Father Medical History: Cancer Notes: stomach Mother Medical History: Cancer Notes: stomach - Social History Alcohol use: No CD- Drugs: No Caffeine use: No Place of Residence: Home Review of Systems General: Weakness Respiratory: Shortness of Breath Cardiovascular: Edema Physical Examination Temp Pulse Resp BP Pulse Ox 97.0 F 129 H 20 105/85 100 01/29/18 08:00 01/29/18 09:07 01/29/18 08:00 01/29/18 09:07 01/29/18 08:00 General: Alert, Oriented x1 HEENT: Atraumatic Neck: Supple Respiratory: Diminished Cardiovascular: Edema (2+ edema), Abnormal S1 S2 Gastrointestinal: Normal bowel sounds, Soft and benign, Other (Patient has a large abdominal hernia) Musculoskeletal: No clubbing, No swelling Integumentary: No rashes, No breakdown - Problems (1) Acute and chronic respiratory failure ([id number]) Current Visit: Yes Status: Acute Plan: Patient is 72 years of age the history of sleep apnea noncompliant morbid obesity congestive heart failure as hypercapnic respiratory history of sleep apnea noncompliant. The start patient on a BiPAP titrate sat to 90% had low- dose spironolactone bronchodilators laboratory data reviewed BNP is abnormal chest x-ray shows cardiomegaly echocardiogram diminished ejection fraction severe global hypokinesis patient has home oxygen compliant with her medications INR therapeutic will contact [facility] patient regarding supplies for a CPAP machine she may need a repeat sleep study patient has a problem with the mask and has not used it for number of years She may have obesity induced obstructive airways disease and I have started her on Brovana Qualifiers: Respiratory failure complication: hypoxia and hypercapnia Qualified Code(s) : J96.21 - Acute and chronic respiratory failure with hypoxia; J96.22 - Acute and chronic respiratory failure with hypercapnia
[2018-01-29] MEDS: ARFORMOTEROL TARTRATE 15 MCG/2 ML VIAL.NEB NEB SCH ×2 (10:59→19:58)
[2018-01-29 11:09] LABS: Arterial Blood Carboxyhemoglob 1.6 % (0-1.5); Blood Gas Oxyhemoglobin 89.2 % (94-97); Blood O2 Saturation 91.2 % (92-98.5)
[2018-01-29] MEDS: SPIRONOLACTONE 25 MG TABLET PO SCH (11:34)
--- NOTE | 2018-01-29 11:53 | P.PN ---
Subjective Date of Service: 01/29/18 Chief Complaint: AFib with RVR Pt seen and examined at bedside. Chart reviewed. Case DW with Cardiology and pulmonology this AM. Pt is still having HR is 120-130 which seems to be her baseline per conversation with her Structural Iron Worker Dr Goss. Noncompliant with CPAP at home and here. Feeling SOB this AM. Review of Systems General: As per HPI Physical Examination - Vital Signs Temperature: 97.0 F Blood Pressure: 105/85 Pulse: 129 Respirations: 20 Pulse Ox (%): 100 - Physical Exam General: Alert, In no apparent distress, Obese HEENT: Atraumatic Neck: Supple, JVD not distended Respiratory: Normal air movement, Crackles/rales, Expiratory wheezes, Inspiratory wheezes, Rhonchi/gurgles Cardiovascular: Normal S1 S2, Irregular heart rate/rhythm Gastrointestinal: Normal bowel sounds, No tenderness Musculoskeletal: No tenderness Integumentary: No rashes Neurological: Normal speech, Normal tone, Normal affect Lymphatics: No axilla or inguinal lymphadenopathy - Studies Medications List Reviewed: Yes Assessment & Plan - Problems (Diagnosis) (1) Acute and chronic respiratory failure ([id number]) Current Visit: Yes Status: Acute Plan: Acute on Chronic Hypercapnic Respiratory failure. Most likely 2.2 to ROBERT and noncomplaince with CPAP -ABG this Morning with elevated CO2. Feeling SOB. -Started on BIPAP wean as tolerated. -Pulmonology consulted. Reccs Appreciated -Brovana -Spironolactone -May need a repeat sleep study and CPAP as her last one is very old and she has not been complaint with it. Qualifiers: Respiratory failure complication: hypoxia and hypercapnia Qualified Code(s) : J96.21 - Acute and chronic respiratory failure with hypoxia; J96.22 - Acute and chronic respiratory failure with hypercapnia (2) Atrial fibrillation with RVR Onset Date: 01/27/18 Current Visit: Yes Status: Chronic Plan: afib witn RVR, Currently HR is 120-130 -Cardiology consulted. Appreciated Reccs -Increase Atelonol to 100mg BID -Started on Digoxin 0.125mg x1 and then 0.25 daily -Anticoagulation with coumadin -EF is < 30% on the ECHO -Per Cardiology Dr Goss at baseline (HR 120-130) (3) CHF (congestive heart failure) Onset Date: 01/27/18 Current Visit: Yes Status: Chronic Plan: EF of 30% on recent ECHO -IV lasix 40mg BID for now. BNP better today -Spironolactone started today for Class 4 CHF -Started on Digoxin Qualifiers: Heart failure type: systolic Heart failure chronicity: acute on chronic Qualified Code(s): I50.23 - Acute on chronic systolic (congestive) heart failure (4) COPD (chronic obstructive pulmonary disease) Onset Date: 01/27/18 Current Visit: Yes Status: Chronic Qualifiers: COPD type: unspecified COPD Qualified Code(s): J44.9 - Chronic obstructive pulmonary disease, unspecified (5) History of hypertension Onset Date: 01/27/18 Current Visit: Yes Status: Chronic (6) History of type 2 diabetes mellitus Onset Date: 01/27/18 Current Visit: Yes Status: Chronic (7) ROBETR (obstructive sleep apnea) Current Visit: Yes Status: Chronic (8) Obesity Current Visit: Yes Status: Chronic Qualifiers: Obesity type: due to excess calories Obesity classification: adult class 3 (BMI >= 40) Serious obesity comorbidity presence: with serious comorbidity Body mass index: BMI 60.0-69.9 Qualified Code(s): E66.01 - Morbid (severe) obesity due to excess calories; Z68.44 - Body mass index (BMI) 60.0-69.9, adult Discharge Plan: Home Plan to discharge in: 48 Hours - Code Status/Comfort Care Code Status Assessed: Yes Critical Care: No
--- NOTE | 2018-01-29 13:00 | PN ---
Date of Progress Note: 01/26/2018 I had seen the patient on 01/26/2018 because of congestive heart failure and atrial fibrillation with rapid ventricular response. We had doubled her atenolol from 100 to 100 twice a day and put on IV L asix. She has diuresed better. She is oxygenating better. She is feeling better. She has less willis ma. She has less rales, but she is still in rapid atrial fibrillation. I will go ahead and add digo danyelle to her regimen. Ms. Schmitz is in chronic atrial fibrillation on anticoagulation, has significant morbid obesity and P ickwickian syndrome, which may be contributing to her fast heart rate. I will try to contact Dr. Prashanth malone to get some more records in her regard. She may have to see Electrophysiology down the road. For now, continue present regimen. She can go to the floor from the ICU. YAMILKA/CECIL Voice ID: [id number] Report ID: [id number]
[2018-01-29 15:15] LABS: Arterial Blood Carboxyhemoglob 1.8 % (0-1.5); Blood Gas Oxyhemoglobin 86.1 % (94-97); Blood O2 Saturation 88.1 % (92-98.5)
[2018-01-29 15:27] LABS: Protime INR 2.39
[2018-01-29] MEDS: WARFARIN SODIUM 5 MG TAB PO SCH (16:43)
[2018-01-29] MEDS: ATORVASTATIN 10 MG TAB PO SCH (20:47)
[2018-01-30] MEDS: INSULIN -REGULAR HUMAN 50 UNIT/0.5 ML ML SQ SCH ×4 (07:30→21:00)
[2018-01-30] MEDS: ARFORMOTEROL TARTRATE 15 MCG/2 ML VIAL.NEB NEB SCH ×2 (08:12→19:30)
[2018-01-30] MEDS: FUROSEMIDE 40 MG/4 ML VIAL IV SCH ×2 (08:19→16:58)
[2018-01-30] MEDS: DIGOXIN 0.25 MG TABLET PO SCH (08:20)
[2018-01-30] MEDS: PANTOPRAZOLE 40MG TABLET PO SCH (08:21)
[2018-01-30] MEDS: SPIRONOLACTONE 25 MG TABLET PO SCH ×2 (08:21→21:20)
[2018-01-30] MEDS: POTASSIUM CL SA 10 MEQ TAB PO SCH (08:21)
[2018-01-30] MEDS: ALLOPURINOL 300 MG TAB PO SCH (08:21)
[2018-01-30] MEDS: ATENOLOL 50 MG TAB PO SCH ×2 (08:21→21:19)
[2018-01-30] MEDS: SERTRALINE HCL 50 MG TAB PO SCH (08:21)
--- NOTE | 2018-01-30 10:27 | P.PN ---
Subjective Date of Service: 01/30/18 Chief Complaint: Respiratory failure Patient's condition is stable she is tolerating BiPAP patient blood gases improved with the BiPAP currently she is drowsy but responsive vital signs all stable in negative fluid balance patient's rate is still elevated Review of Systems is unable to be obtained Physical Examination - Vital Signs Temperature: 96.9 F Blood Pressure: 133/101 Pulse: 134 Respirations: 16 Pulse Ox (%): 92 - Physical Exam General: Other Respiratory: Clear to auscultation bilaterally, Diminished Cardiovascular: Edema (2+ edema), Irregular heart rate/rhythm, Abnormal S1 S2 Gastrointestinal: Normal bowel sounds, Soft and benign - Studies Medications List Reviewed: Yes Assessment & Plan - Problems (Diagnosis) (1) Acute and chronic respiratory failure ([id number]) Current Visit: Yes Status: Acute Plan: Patient admitted with acute on chronic respiratory failure I suspect due to underlying sleep apnea patient is tolerating BiPAP continue with Lasix increase spironolactone to 25 mg twice a day Dc potassium will check with [facility] regarding the status of her sleep study and see if she can get a new machine otherwise she will need a sleep study on an urgent basis labs reviewed Qualifiers: Respiratory failure complication: hypoxia and hypercapnia Qualified Code(s) : J96.21 - Acute and chronic respiratory failure with hypoxia; J96.22 - Acute and chronic respiratory failure with hypercapnia
[2018-01-30] MEDS: NICOTINE 14 MG/PAT TD SCH (11:07)
[2018-01-30 11:14] LABS: Absolute Lymphocytes (CBC) 1.5 K/uL (0.7-4.9); Absolute Monocytes 0.8 K/uL (0.1-1.3); Absolute Neutrophil 4.5 K/uL (1.8-8.0); Basophils % 0.6 % (0-1.3); Eosinophils % 1.4 % (0-4.4); Hematocrit 37.7 % (36.0-45.0); Lymphocytes % 21.4 % (15.3-44.8); MCH 31.7 pg (27.0-35.0); MCV 102.8 fL (80-100); MPV 10.7 fL (7.6-11.3); Monocytes % 11.2 % (3.3-12.3); RBC Red Blood Cell Count 3.67 M/uL (3.86-4.86)
[2018-01-30 11:17] LABS: Arterial Blood Carboxyhemoglob 1.7 % (0-1.5); Blood Gas Oxyhemoglobin 93.2 % (94-97); Blood Gas RHB 0.6 %; Blood O2 Saturation 95.4 % (92-98.5)
[2018-01-30 11:32] LABS: Bilirubin Total 0.7 mg/dL (0.2-1.0); Protein, Total 7.9 g/dL (6.4-8.2)
--- NOTE | 2018-01-30 11:44 | P.PN ---
Subjective Date of Service: 01/30/18 Chief Complaint: Respiratory failure Pt seen and examined at bedside. Chart reviewed. Case D/W with Cardiology and pulmonology this AM. Pt is still having HR is 120-130 which seems to be her baseline per conversation with her Configuration Management Advisor Dr Goss. Noncompliant with CPAP at home and here. On BIPAP right now. Decreased oxygen to 21% patient desaturated to 70% increased to 30% and now saturating to 90%. patient Chews Tobacco At home and some Tobacco on the floor. Pt advised not to eat or chew tobacco in the hospital. Review of Systems General: As per HPI Physical Examination - Vital Signs Temperature: 96.9 F Blood Pressure: 133/101 Pulse: 134 Respirations: 16 Pulse Ox (%): 92 - Physical Exam General: Alert, Oriented x2, Moderate distress HEENT: Atraumatic, PERRLA, EOMI Neck: Supple, JVD not distended Respiratory: Clear to auscultation bilaterally, Normal air movement Cardiovascular: Regular rate/rhythm, Normal S1 S2 Gastrointestinal: Normal bowel sounds, No tenderness Musculoskeletal: No tenderness Integumentary: No rashes Neurological: Normal speech, Normal tone, Normal affect Lymphatics: No axilla or inguinal lymphadenopathy - Studies Medications List Reviewed: Yes Assessment & Plan - Problems (Diagnosis) (1) Acute and chronic respiratory failure ([id number]) Current Visit: Yes Status: Acute Plan: Acute on Chronic Hypercapnic Respiratory failure. Most likely 2.2 to ROBERT and noncompliance with CPAP -ABG this AM with CO2 of 66 on BIPAP. Wean if tolerated -Pulmonology consulted. Reccs Appreciated -Brovana -Spironolactone -May need a repeat sleep study and CPAP as her last one is very old and she has not been complaint with it. -Will Contact [facility] Patient to obtain information requested by Business Information Manager. -Per Pulmonology Patient may need to have STAT sleep study done. Qualifiers: Respiratory failure complication: hypoxia and hypercapnia Qualified Code(s) : J96.21 - Acute and chronic respiratory failure with hypoxia; J96.22 - Acute and chronic respiratory failure with hypercapnia (2) Atrial fibrillation with RVR Onset Date: 01/27/18 Current Visit: Yes Status: Chronic Plan: afib witn RVR, Currently HR is 120-130 -Cardiology consulted. Appreciated Reccs -Increase Atelonol to 100mg BID -Started on Digoxin 0.125mg x1 and then 0.25 daily -Anticoagulation with coumadin -EF is < 30% on the ECHO -Per Cardiology Dr Goss at baseline (HR 120-130) (3) CHF (congestive heart failure) Onset Date: 01/27/18 Current Visit: Yes Status: Chronic Plan: EF of 30% on recent ECHO -IV lasix 40mg BID for now. -Spironolactone started today for Class 4 CHF -Started on Digoxin Qualifiers: Heart failure type: systolic Heart failure chronicity: acute on chronic Qualified Code(s): I50.23 - Acute on chronic systolic (congestive) heart failure (4) COPD (chronic obstructive pulmonary disease) Onset Date: 01/27/18 Current Visit: Yes Status: Chronic Qualifiers: COPD type: unspecified COPD Qualified Code(s): J44.9 - Chronic obstructive pulmonary disease, unspecified (5) History of hypertension Onset Date: 01/27/18 Current Visit: Yes Status: Chronic (6) History of type 2 diabetes mellitus Onset Date: 01/27/18 Current Visit: Yes Status: Chronic (7) ROBERT (obstructive sleep apnea) Current Visit: Yes Status: Chronic (8) Obesity Current Visit: Yes Status: Chronic Qualifiers: Obesity type: due to excess calories Obesity classification: adult class 3 (BMI >= 40) Serious obesity comorbidity presence: with serious comorbidity Body mass index: BMI 60.0-69.9 Qualified Code(s): E66.01 - Morbid (severe) obesity due to excess calories; Z68.44 - Body mass index (BMI) 60.0-69.9, adult Discharge Plan: Home Plan to discharge in: 48 Hours - Code Status/Comfort Care Code Status Assessed: Yes Critical Care: No
--- NOTE | 2018-01-30 15:15 | RAD REPORT ---
EXAM DESCRIPTION: RAD - Chest Single View - 01/30/2018 3:08 pm CLINICAL HISTORY: Cough, shortness of breath COMPARISON: January 26, 2018 TECHNIQUE: AP portable chest image was obtained 1456 hours . FINDINGS: No peripheral consolidation or mass. Significant cardiomegaly is present similar to prior examination. Vasculature is prominent also felt to be stable. No measurable pleural effusion and no p neumothorax. No gross bony abnormality seen. No acute aortic findings suspected. IMPRESSION: Cardiomegaly and mild vascular engorgement. No significant interstitial pattern. Mild failure or volume overload suspected. However, findings are not substantially different from Jan.
[2018-01-30] MEDS: WARFARIN SODIUM 5 MG TAB PO SCH (16:58)
[2018-01-30] MEDS: ALPRAZOLAM 0.25 MG TABLET PO PRN (21:20)
[2018-01-30] MEDS: ATORVASTATIN 10 MG TAB PO SCH (21:20)
[2018-01-31 05:14] LABS: Absolute Lymphocytes (CBC) 1.6 K/uL (0.7-4.9); Absolute Monocytes 0.9 K/uL (0.1-1.3); Basophils % 0.5 % (0-1.3); Eosinophils % 1.7 % (0-4.4); Hematocrit 38.4 % (36.0-45.0); Lymphocytes % 23.7 % (15.3-44.8); MCH 31.9 pg (27.0-35.0); MCV 102.4 fL (80-100); MPV 11.2 fL (7.6-11.3); Monocytes % 13.4 % (3.3-12.3); RBC Red Blood Cell Count 3.75 M/uL (3.86-4.86)
[2018-01-31 05:33] LABS: Albumin 3.1 g/dL (3.4-5.0); Bilirubin Total 0.6 mg/dL (0.2-1.0); Protein, Total 7.8 g/dL (6.4-8.2)
[2018-01-31 06:13] VITALS: BMI 63.6
[2018-01-31] MEDS: INSULIN -REGULAR HUMAN 50 UNIT/0.5 ML ML SQ SCH ×4 (07:30→21:00)
[2018-01-31] MEDS: ARFORMOTEROL TARTRATE 15 MCG/2 ML VIAL.NEB NEB SCH ×2 (08:17→19:52)
[2018-01-31] MEDS: FUROSEMIDE 40 MG/4 ML VIAL IV SCH ×2 (11:06→16:33)
[2018-01-31] MEDS: SPIRONOLACTONE 25 MG TABLET PO SCH ×2 (11:06→20:11)
[2018-01-31] MEDS: SERTRALINE HCL 50 MG TAB PO SCH (11:07)
[2018-01-31] MEDS: DIGOXIN 0.25 MG TABLET PO SCH (11:08)
[2018-01-31] MEDS: PANTOPRAZOLE 40MG TABLET PO SCH (11:09)
[2018-01-31] MEDS: ATENOLOL 50 MG TAB PO SCH ×2 (11:11→20:11)
[2018-01-31] MEDS: NICOTINE 14 MG/PAT TD SCH (11:15)
[2018-01-31] MEDS: ALLOPURINOL 300 MG TAB PO SCH (11:15)
--- NOTE | 2018-01-31 14:11 | PN ---
Date of Progress Note: 01/31/2018 Subjective: The patient seen and examined, chart reviewed, and case discussed with RN. The patient still complaining of some shortness of breath, however, somewhat improved. The patient stated that, she does not have a mask to use at home with her CPAP machine. Review of Systems: Negative except as above. Medications: Reviewed. Objective: Vital Signs: Temperature 97.3, heart rate 132, blood pressure 170/90, respirations 20, a nd O2 94% on BiPAP. General: Awake, alert, oriented x3, some mild respiratory distress. Elderly female, ill-appearing, morbidly obese, BMI 63. CV: S1, S2. Irregularly irregular. Peripheral pulses weak. Respiratory: Diminished breath sounds. No wheezing Gastrointestinal: Abdomen is soft, nontender, n ondistended. Positive bowel sounds. Extremities: No clubbing, cyanosis. Peripheral edema is present. Neurologic: Nonfocal. Laboratory Data: Sodium 138, potassium 4, chloride 96, CO2 38, BUN 29, creatinine 1.1, glucose 110, calcium 8.7, and albumin 3.1. WBC 6.7, H and H 12, 38.4, and platelets 143. Blood culture, no growt h to date. Assessment And Plan: A 72-year-old female with; 1.Acute on chronic respiratory failure, hypercapnic secondary to sleep apnea and noncompliance with CPAP. ABGs improving. The patient is well compensated. Pulmonology on the case. We will continue Brovana and spironolactone. The patient has been noncompliant with her CPAP. No mask at home. May need to have a repeat sleep study. 2.Atrial fibrillation with RVR, rate in the 130s. Cardiology on board. Atenolol dose has been incr eased. Currently on digoxin. Continue anticoagulation with Coumadin. Ejection fraction is less clarissa n 30% seen on echo. 3.Congestive heart failure, acute on chronic, systolic and diastolic heart failure. Ejection fracti on 30% on echo. Continue with IV fluids and spironolactone. Fluid restriction. Monitor I's and O's . 2 g sodium restricted diet. 4.Chronic obstructive pulmonary disease, chronic bronchitis. 5.Essential hypertension. 6.Diabetes mellitus type 2, with hyperglycemia without long-term use of insulin. 7.Obstructive sleep apnea, noncompliant with CPAP. 8.Morbid obesity, body mass index 63. 9.Gastrointestinal and deep venous thrombosis prophylaxis addressed. /CECIL Voice ID: [id number] Report ID: [id number]
[2018-01-31] MEDS: WARFARIN SODIUM 5 MG TAB PO SCH (16:32)
[2018-01-31] MEDS: ATORVASTATIN 10 MG TAB PO SCH (20:11)
[2018-01-31] MEDS: ACETAMINOPHEN 500 MG TAB PO PRN (20:12)
[2018-02-01 04:28] LABS: Absolute Lymphocytes (CBC) 2.1 K/uL (0.7-4.9); Absolute Monocytes 0.9 K/uL (0.1-1.3); Absolute Neutrophil 3.9 K/uL (1.8-8.0); Basophils % 0.5 % (0-1.3); Eosinophils % 1.7 % (0-4.4); Hematocrit 38.9 % (36.0-45.0); Lymphocytes % 30.2 % (15.3-44.8); MCV 102.4 fL (80-100); MPV 10.9 fL (7.6-11.3); Monocytes % 12.7 % (3.3-12.3)
[2018-02-01 05:19] LABS: Protime INR 3.31
[2018-02-01 05:30] LABS: Albumin 3.2 g/dL (3.4-5.0); Bilirubin Total 0.5 mg/dL (0.2-1.0); Potassium 3.9 mmol/L (3.5-5.1); Protein, Total 8.1 g/dL (6.4-8.2)
[2018-02-01] MEDS ORDERED: POTASSIUM 25 MEQ EFFERV TAB PO ONE (05:54)
[2018-02-01] MEDS: INSULIN -REGULAR HUMAN 50 UNIT/0.5 ML ML SQ SCH ×2 (07:30→11:30)
[2018-02-01] MEDS: ARFORMOTEROL TARTRATE 15 MCG/2 ML VIAL.NEB NEB SCH (08:27)
[2018-02-01 09:27] VITALS: O2SAT 94
[2018-02-01] MEDS: ATENOLOL 50 MG TAB PO SCH (09:51)
[2018-02-01] MEDS: SERTRALINE HCL 50 MG TAB PO SCH (09:51)
[2018-02-01] MEDS: NICOTINE 14 MG/PAT TD SCH (09:51)
[2018-02-01] MEDS: DIGOXIN 0.25 MG TABLET PO SCH (09:51)
[2018-02-01] MEDS: FUROSEMIDE 40 MG/4 ML VIAL IV SCH (09:51)
[2018-02-01] MEDS: PANTOPRAZOLE 40MG TABLET PO SCH (09:52)
[2018-02-01] MEDS: SPIRONOLACTONE 25 MG TABLET PO SCH (09:52)
[2018-02-01] MEDS: ALLOPURINOL 300 MG TAB PO SCH (09:52)
[2018-02-01 12:26] VITALS: BP 126/77; TEMP 97.6
--- NOTE | 2018-02-01 18:30 | DS ---
Date of Discharge: 02/01/2018 Consultants: Musa Garcia M.D. with Pulmonology; Reid Cronin M.D. with Cardiology. Admitting Diagnoses: 1.Atrial fibrillation with rapid ventricular rate. 2.Hypertension. 3.Diabetes. 4.Congestive heart failure. 5.Chronic obstructive pulmonary disease. Discharge Diagnoses: 1.Atrial fibrillation with rapid ventricular rate, improved. 2.Dgzif-qn-wdavrpz respiratory failure. Hypercapnic secondary to sleep apnea, noncompliance with CP AP. 3.Congestive heart failure, orivj-dz-apfyicv systolic and diastolic heart failure. Ejection fractio n of 30%. 4.Chronic obstructive pulmonary disease, chronic bronchitis. 5.Essential hypertension. 6.Diabetes mellitus type 2 with hyperglycemia without long-term use of insulin. 7.Obstructive sleep apnea, noncompliant with CPAP. 8.Morbid obesity, a BMI of 63. 9.Hypertensive heart disease. Hospital Course: The patient is a 72-year-old female, who came into the hospital with palpitations a nd shortness of breath, found to have AFib with RVR. The patient normally follows up with Dr. Goss as her primary mft. The patient's medications were adjusted. Her atenolol was increased to 100 mg b.i.d. she was added to digoxin. Dr. Cronin with Cardiology was consulted. The patient marques d an echocardiogram, which showed EF of 30% with severe global hypokinesis, left ventricular hypertro phy. The patient was also seen by assembler and tester electronics, Dr. Garcia, regarding her sleep apnea. She has b een noncompliant with her CPAP machine at home. The patient was able to wear the BiPAP here in the h ospital. The patient was counseled extensively on compliance with her CPAP machine. Her home health agency was contacted regarding her CPAP. Her daughter was also at the bedside. Treatment plan was explained to her and importance of using the CPAP. The patient continued to have rate in the 120s wi th AFib. Dr. Cronin spoke with Dr. Goss, who recommends ablation and pacemaker for the patient. T he patient has been tried on multiple different medications including amiodarone and several other ag ents, however, continues to be in atrial fibrillation. The patient does have super morbid obesity wi th a BMI of 63, Pickwickian syndrome, likely resulting in her atrial fibrillation. The patient was c ounseled extensively. She understands that she will eventually need bariatric surgery due to her hig h BMI. Currently not interested in a weight loss surgery. The patient was then cleared for discharg e from senior solutions workflow consultant's standpoint and was discharged home in a stable condition. Activity: No strenuous activity, fall precautions. Diet: Low-sodium fluid-restricted diet. Followup: Follow up with primary care physician in 2-3 days. Follow up with Dr. Goss, primary card iologist in 2 weeks. Follow up with assembler and tester electronics, Dr. Garcia in 2 weeks. Return to ER for worsen ing condition. Have INR checked in 1-2 days. Have PCP adjust Coumadin dose. The patient's INR some what above 3 today. Instructed to hold Coumadin for 1 day and to have INR rechecked before restartin g Coumadin and to contact primary care physician for further instructions. Medications: As per medication reconciliation list. Total time spent discharging the patient was 41 minutes. Physical Examination: General: Awake, alert, and oriented x3. No acute distress. Morbidly obese, elderly female. CVS: S1 and S2. Irregularly irregular. Respiratory: Some diminished breath sounds at the bases, otherwise moving air well. GI: Abdomen is soft, nontender, nondistended. Positive bowel sounds. Extremities: No clubbing, cyanosis. Pedal edema present. Neurologic: Nonfocal. SA/MODL Voice ID: [id number] Report ID: [id number]
== END 2018-02-01 16:18 | disposition home or self-care (01) | DRG 291 ==
LOC: ER 15:15 → ERHOLD 18:49 → 3RD-ICU 19:49 → 4TH 01-28 21:30
PROVIDERS: ADMIT Hospitalist; ATTEND Family Medicine
PROC: 5A09557 Assistance with Respiratory Ventilation, Greater than 96 Consecutive Hours, Continuous Positive Airway Pressure (ICD-10-PCS; principal; 2018-01-26)
DX: I11.0 Hypertensive heart disease with heart failure (principal); J96.22 Acute and chronic respiratory failure with hypercapnia; J96.21 Acute and chronic respiratory failure with hypoxia; Z68.44 Body mass index [BMI] 60.0-69.9, adult; E66.2 Morbid (severe) obesity with alveolar hypoventilation; I50.23 Acute on chronic systolic (congestive) heart failure; Z91.19 Patient's noncompliance with other medical treatment and regimen; E11.65 Type 2 diabetes mellitus with hyperglycemia; J42 Unspecified chronic bronchitis; G47.33 Obstructive sleep apnea (adult) (pediatric); F17.220 Nicotine dependence, chewing tobacco, uncomplicated; I48.2 Chronic atrial fibrillation; R53.81 Other malaise; M19.90 Unspecified osteoarthritis, unspecified site; Z79.01 Long term (current) use of anticoagulants; Z79.84 Long term (current) use of oral hypoglycemic drugs; I25.10 Atherosclerotic heart disease of native coronary artery without angina pectoris; Z88.5 Allergy status to narcotic agent
CPT/HCPCS: 36415; 71045; 80048; 80053; 80076; 81003; 82550; 82553; 82805; 82962; 83690; 83735; 83880; 84100; 84439; 84443; 84484; 85025; 85610; 87040; 93005; 93306; 94660; 96365; 96366; 96375; 99285; J7605